=== PATIENT | female | born 1950 | race Caucasian/White ===

== ENCOUNTER 2018-10-05 12:03 | Emergency (ER) | payer MEDICARE, BC ==
[2018-10-05 12:12] VITALS: BP 153/90
[2018-10-05] MEDS ORDERED: Sodium Chloride 0.9% 10 ML Syringe FLUSH PRN (12:13)
[2018-10-05] MEDS ORDERED: Sodium Chloride 0.9% 1,000 ML IV SCH (12:15)
[2018-10-05] MEDS ORDERED: Ondansetron 4 MG/2 ML SDV IVPUSH ONE (12:32)
--- NOTE | 2018-10-05 12:46 | EDM.PDOC ---
ED HPI GENERAL MEDICAL PROBLEM - General Chief Complaint: Neurological Problem Stated Complaint: DIZZY Time Seen by Provider: 10/05/18 12:08 Source of Information: Reports: Patient History Limitations: Reports: No Limitations - History of Present Illness INITIAL COMMENTS - FREE TEXT/NARRATIVE: The patient presents with dizziness. She said she woke up with this. She was off balance and unsteady. She laid down again and the room was spinning. She had nausea and she vomited one time. She said this may have happened to her one time in the past. She has no headache, ear pain, hearing loss, or ringing in her ears. She has no fever, chills, cough, chest pain, abdominal pain, numbness or weakness. Onset: Sudden Duration: Hour(s): Severity: Moderate Improves with: Reports: Immobilization Worsens with: Reports: Movement Associated Symptoms: Reports: Nausea/Vomiting. Denies: Chest Pain, Cough, Fever /Chills, Headaches, Shortness of Breath - Related Data Allergies Allergy/AdvReac Type Severity Reaction Status Date / Time No Known Allergies Allergy Verified 10/05/18 12:13 Home Meds: Home Meds Lisinopril 10 mg PO DAILY 10/05/18 [History] Meclizine [Antivert] 25 mg PO Q6H PRN #20 tab 10/05/18 [Rx] Ondansetron [Zofran ODT] 4 mg PO Q6H PRN #20 tab.dis 10/05/18 [Rx] Past Medical History Cardiovascular History: Reports: Hypertension Psychiatric History: Reports: None - Infectious Disease History Infectious Disease History: Reports: Chicken Pox - Past Surgical History GI Surgical History: Reports: Cholecystectomy Social & Family History - Caffeine Use Caffeine Use: Reports: Tea ED ROS GENERAL - Review of Systems Review Of Systems: See Below Constitutional: Reports: No Symptoms HEENT: Reports: No Symptoms Respiratory: Reports: No Symptoms Cardiovascular: Reports: No Symptoms Endocrine: Reports: No Symptoms GI/Abdominal: Reports: No Symptoms : Reports: No Symptoms Musculoskeletal: Reports: No Symptoms Skin: Reports: No Symptoms Neurological: Reports: Dizziness ED EXAM, NEURO - Physical Exam Exam: See Below Exam Limited By: No Limitations General Appearance: Alert, No Apparent Distress Eye Exam: Left Eye: Nystagmus, Bilateral Eye: EOMI, PERRL Ears: Normal External Exam Nose: Normal Inspection Head Exam: Atraumatic, Normocephalic Neck: Normal Inspection Respiratory/Chest: No Respiratory Distress, Lungs Clear, Normal Breath Sounds Cardiovascular: Regular Rate, Rhythm, No Edema, No Murmur GI/Abdominal: Soft, Non-Tender, No Organomegaly, No Mass Neurological: Alert, No Motor/Sensory Deficits, Oriented x 3 EKG INTERPRETATION EKG Date: 10/05/18 Time: 12:32 Rhythm: NSR Rate (Beats/Min): 63 [place]: Normal P-Wave: Present QRS: Normal ST-T: Normal QT: Normal Course - Vital Signs Last Recorded V/S: Last Vital Signs Temp 98.7 F 10/05/18 12:10 Pulse 59 L 10/05/18 12:10 Resp 16 10/05/18 12:10 BP 153/90 H 10/05/18 12:10 Pulse Ox 98 10/05/18 12:10 - Orders/Labs/Meds Orders: Active Orders 24 hr Category Date Time Status Cardiac Monitoring [RC] . DIRECTED Care 10/05/18 12:14 Active Cardiac Monitoring [RC] . DIRECTED Care 10/05/18 12:41 Active EKG Documentation Completion [RC] STAT Care 10/05/18 12:14 Active Peripheral IV Care [RC] . DIRECTED Care 10/05/18 12:14 Active Sodium Chloride 0.9% [Normal Saline] 1,000 ml Med 10/05/18 12:15 Active IV ASDIRECTED Sodium Chloride 0.9% [Saline Flush] Med 10/05/18 12:13 Active 10 ml FLUSH ASDIRECTED PRN Peripheral IV Insertion Adult [OM.PC] Stat Oth 10/05/18 12:13 Ordered Medication Orders Sodium Chloride (Normal Saline) 1,000 mls @ 125 mls/hr IV ASDIRECTED JACKSON Last Admin: 10/05/18 12:34 Dose: 125 mls/hr Sodium Chloride (Saline Flush) 10 ml FLUSH ASDIRECTED PRN PRN Reason: Keep Vein Open Last Admin: 10/05/18 12:34 Dose: 10 ml Labs: Laboratory Tests 10/05/18 10/05/18 Range/Units 12:30 12:30 WBC 7.15 (3.98-10.04) K/mm3 RBC 5.11 (3.98-5.22) M/mm3 Hgb 14.7 (11.2-15.7) gm/L Hct 45.7 H (34.1-44.9) % MCV 89.4 (79.4-94.8) fl MCH 28.8 (25.6-32.2) pg MCHC 32.2 (32.2-35.5) g/dl RDW Std Deviation 46.3 (36.4-46.3) fL Plt Count 192 (182-369) K/mm3 MPV 10.6 (9.4-12.3) fl Neut % (Auto) 75.9 H (34.0-71.1) % Lymph % (Auto) 17.1 L (19.3-51.7) % [place] % (Auto) 5.5 (4.7-12.5) % Eos % (Auto) 1.1 (0.7-5.8) Baso % (Auto) 0.3 (0.1-1.2) % Neut # (Auto) 5.43 (1.56-6.13) K/mm3 Lymph # (Auto) 1.22 (1.18-3.74) K/mm3 [place] # (Auto) 0.39 H (0.24-0.36) K/mm3 Eos # (Auto) 0.08 (0.04-0.36) K/mm3 Baso # (Auto) 0.02 (0.01-0.08) K/mm3 Sodium 137 (136-145) mEq/L Potassium 4.2 (3.5-5.1) mEq/L Chloride 103 (98-107) mEq/L Carbon Dioxide 26 (21-32) mEq/L Anion Gap 12.2 (5-15) BUN 23 H (7-18) mg/dL Creatinine 0.8 (0.55-1.02) mg/dL Est Cr Clr Drug Dosing TNP Estimated GFR (MDRD) > 60 (>60) mL/min BUN/Creatinine Ratio 28.8 H (14-18) Glucose 118 H (80-115) mg/dL Calcium 9.2 (8.5-10.1) mg/dL Total Bilirubin 0.6 (0.2-1.0) mg/dL AST 21 (15-37) U/L ALT 29 (14-59) U/L Alkaline Phosphatase 93 (46-116) U/L Troponin I < 0.017 (0.00-0.056) ng/mL Total Protein 7.8 (6.4-8.2) g/dl Albumin 3.9 (3.4-5.0) g/dl Globulin 3.9 gm/dL Albumin/Globulin Ratio 1.0 (1-2) Meds: Medications Generic Name Dose Route Start Last Admin Trade Name Freq PRN Reason Stop Dose Admin Sodium Chloride 1,000 mls @ 125 mls/hr 10/05/18 12:15 10/05/18 12:34 Normal Saline IV 125 mls/hr ASDIRECTED JACKSON Administration Sodium Chloride 10 ml 10/05/18 12:13 10/05/18 12:34 Saline Flush FLUSH 10 ml ASDIRECTED PRN Administration Keep Vein Open Discontinued Medications Generic Name Dose Route Start Last Admin Trade Name Freq PRN Reason Stop Dose Admin Meclizine HCl 25 mg 10/05/18 12:33 10/05/18 12:36 Antivert PO 10/05/18 12:34 25 mg ONETIME ONE Administration Ondansetron HCl 4 mg 10/05/18 12:32 10/05/18 12:36 Zofran IVPUSH 10/05/18 12:33 4 mg ONETIME ONE Administration - Re-Assessments/Exams Free Text/Narrative Re-Assessment/Exam: 10/05/18 12:50 I ordered an IV NS at 125mL/hr, zofran 4mg IV, antivert 25mg by mouth, CT of her head, EKG and labs. Her EKG shows a NSR with no acute changes. 10/05/18 14:00 Her CBC and CMP are negative. Her troponin is negative. Her CT shows nothing acute. She feels better. I feel this is vertigo. I will get her on some antivert and zofran. Departure - Departure Time of Disposition: 14:05 Disposition: Home, Self-Care 01 Condition: Good Clinical Impression: Vertigo - Discharge Information *PRESCRIPTION DRUG MONITORING PROGRAM REVIEWED*: Not Applicable *COPY OF PRESCRIPTION DRUG MONITORING REPORT IN PATIENT SUGEY: Not Applicable Prescriptions: Meclizine [Antivert] 25 mg PO Q6H PRN #20 tab PRN Reason: Dizziness Ondansetron [Zofran ODT] 4 mg PO Q6H PRN #20 tab.dis PRN Reason: Nausea\vomiting Referrals: Ruby Bird, FACILITIES ASSISTANT [Primary Care Provider] - 1 Week Forms: ED Department Discharge Additional Instructions: Take zofran as needed for nausea and vomiting. Take the antivert for dizziness. Drink plenty of fluids. Please return if you are worse. - My Orders Last 24 Hours: My Active Orders 10/05/18 12:13 Sodium Chloride 0.9% [Saline Flush] 10 ml FLUSH ASDIRECTED PRN Peripheral IV Insertion Adult [OM.PC] Stat 10/05/18 12:14 Cardiac Monitoring [RC] . DIRECTED EKG Documentation Completion [RC] STAT Peripheral IV Care [RC] . DIRECTED 10/05/18 12:15 Sodium Chloride 0.9% [Normal Saline] 1,000 ml IV ASDIRECTED 10/05/18 12:41 Cardiac Monitoring [RC] . DIRECTED - Assessment/Plan Last 24 Hours: My Active Orders 10/05/18 12:13 Sodium Chloride 0.9% [Saline Flush] 10 ml FLUSH ASDIRECTED PRN Peripheral IV Insertion Adult [OM.PC] Stat 10/05/18 12:14 Cardiac Monitoring [RC] . DIRECTED EKG Documentation Completion [RC] STAT Peripheral IV Care [RC] . DIRECTED 10/05/18 12:15 Sodium Chloride 0.9% [Normal Saline] 1,000 ml IV ASDIRECTED 10/05/18 12:41 Cardiac Monitoring [RC] . DIRECTED
--- NOTE | 2018-10-05 13:09 | CT ---
Head CT Technique: Multiple axial sections through the brain were obtained. Intravenous contrast was not utilized. Comparison: No prior intracranial imaging. Findings: Ventricles along with basal cisterns and sulci over the convexities are within normal limits for the patient's age. No abnormal parenchymal densities are seen. No evidence of intracranial hemorrhage. No midline shift or mass effect is seen. Bone window settings were reviewed which shows no acute calvarial abnormality. Visualized sinuses are clear. Impression: 1. Nothing acute is appreciated on noncontrast head CT exam. Diagnostic code #1
== END 2018-10-05 14:16 | disposition home or self-care (01) ==
LOC: JD.ED 12:03
DX: R42 Dizziness and giddiness (principal); I10 Essential (primary) hypertension; Z79.899 Other long term (current) drug therapy
CPT/HCPCS: 36415; 70450; 80053; 84484; 85025; 93005; 96361; 96374; 99284; A9270; J2405; J7040; 93010

== ENCOUNTER 2025-06-22 06:45 | Day surgery (SDC) | payer MEDICARE, BC ==
[~2025-06-22 06:45] MED LIST: Sodium Chloride 0.9% 10 ML Syringe FLUSH PRN; Sodium Chloride 0.9% 10 ML Syringe FLUSH SCH
[2025-06-22] MEDS ORDERED: Propofol 200 MG/20 ML SDV ONE ×2 (07:13→09:05)
[2025-06-22] MEDS ORDERED: Ketamine HCL/NACL, ISO-OSM 50 MG/5 ML Syringe ONE (07:13)
[2025-06-22] MEDS ORDERED: fentaNYL 100 MCG/2 ML SDV ONE (07:13)
[2025-06-22] MEDS ORDERED: Ketorolac 15 MG/ML SDV ONE (07:16)
[2025-06-22] MEDS: Lactated Ringers 1,000 ML IV SCH (07:20)
[2025-06-22] MEDS: oxyCODONE ER 10 MG TAB.ER PO SCH (07:20)
[2025-06-22] MEDS ORDERED: Lactated Ringers 1,000 ML ONE (08:45)
[2025-06-22] MEDS ORDERED: Ondansetron 4 MG/2 ML SDV ONE (08:45)
[2025-06-22] MEDS ORDERED: Phenylephrine 1% 10 MG/ML SDV ONE (08:45)
[2025-06-22] MEDS: Morphine 8 MG, EPINEPHrine 0.3 MG, Cefuroxime 750 MG, Ketorolac 30 MG, Sodium Chloride ... PRN (09:09)
[2025-06-22] MEDS ORDERED: Ropivacaine 0.5% 5 MG/ML 30 ML SDV ONE (09:55)
[2025-06-22] MEDS: fentaNYL 100 MCG/2 ML SDV IVPUSH PRN (10:08)
[2025-06-22] MEDS: Ondansetron 4 MG/2 ML SDV IVPUSH PRN (14:24)
[2025-06-22 16:01] VITALS: BP 141/65; PULSE 77
== END 2025-06-22 15:57 | disposition home or self-care (01) ==
LOC: JD.SDS 06:45
PROVIDERS: ATTEND Orthopaedic Surgery
DX: M17.12 Unilateral primary osteoarthritis, left knee (principal); I10 Essential (primary) hypertension; E78.5 Hyperlipidemia, unspecified; E03.9 Hypothyroidism, unspecified; E66.9 Obesity, unspecified; Z68.41 Body mass index [BMI] 40.0-44.9, adult; Z79.890 Hormone replacement therapy; Z79.899 Other long term (current) drug therapy
CPT/HCPCS: 0055T; 27447; 73560; 97116; 97161; 97530; A9270; C1713; C1776; J0169; J0690; J0697; J1885; J2272; J2371; J2405; J2704; J2795; J3010; J3373; J7120; J1171; J3490